=== PATIENT | female | born 1940 | race Caucasian/White ===

== ENCOUNTER 2017-03-09 11:15 | Inpatient (IN) | payer MEDICARE, BC ==
[~2017-03-09] VITALS: Ht 162.6 cm; Wt 72.1 kg
--- NOTE | ~2017-03-09 | ESTC ---
Cardiac Perfusion Imaging Demographics Patient Name ENA Hutson Gender Female Patient Number [id number] Race Visit Number [id number] Ethnicity Corporate ID Room Number G6309 Accession Number [id number] Height 64 inches Date of 1940 Weight 177 pounds Piper Navarro MD Interpreting Joshua Guerrero Date of study 03/16/2017 Physician MD Supervising /TEZP Piper Montoya NM Technologist Evy Navarro MD Ordering Physician Stress power tool repair technician Stress ECG Reading Piper Montoya Nurse Jam Dodd Physician A RN Propkelechi Henry RNyoke presser Procedure Type: Nuclear Stress Test:Cardiolite Stress Test Procedure Start time: 03/16/2017 08:20 Risk Factors The patient risk factors include:former tobacco use, hypertension, family history of premature CAD and dyslipidemia. Conclusions Impression ECG portion of lexiscan stress test is clinically negative for ischemia by diagnostic criteria. Myocardial perfusion imaging is normal. Overall left ventricular systolic function was normal without regional wall motion abnormalities. Calculated LVEF is 62% and TID ratio is 1.13. There are no previous studies for comparison. Stress Protocols Resting ECG SB PACs T inversions Pre-stress physical exam: Patient assessed by Dr Saldaña prior to testing. Stress Protocol:Pharmacologic Predicted HR: 143 bpm ECG Findings Indeterminate ECG due to baseline abnormalities. Arrhythmias No rhythm abnormality. Symptoms Cough Stress Interpretation Appropriate hemodynamic response to Lexiscan. No significant ST-T wave changes with Lexiscan. ECG portion is negative for ischemia by diagnostic criteria. Imaging Results Summed scores - Summed stress score: 9 - Summed rest score: 11 - Summed difference score: -2 Stress ejection Ejection fraction:62 % EDV :126 ml ESV :48 ml Stroke volume :78 ml LV mass :140 gr Imaging Protocols Rest Stress Isotope:Tc99m Sestamibi IV Isotope: Tc99m Sestamibi IV Isotope dose:14.2 mCi Isotope dose:43 mCi Date:03/16/2017 06:47 Date:03/09/2017 08:59 Technique: SPECT Technique: Gated Supine SPECT Supine IV remains in place after procedure. Procedure Medications - Regadenoson (Lexiscan) 0.4 mg IV over 10-15 sec. I.V. . Medical History Admission Data Admission date: 03/09/2017 Admission Time: 11:15 Hospital Status: Inpatient. Signatures dtt: THAO HERNANDEZ dtd: 03/16/17 0820 Physician Self Edit
--- NOTE | ~2017-03-09 | HP ---
PATIENT'S NAME: FREEMAN SUTHERLAND [facility] AGE: 77 Y [address] ROOM: [address] [address] [facility] ADMIT DATE: 03/09/2017 History & Physical DISCHARGE DATE: FAMILY PHYSICIAN: PHYSICIAN, UNKNOWN ATTENDING PHYSICIAN: Camacho GAMEZ DATE OF SERVICE: CHIEF COMPLAINT: Atrial fibrillation with RVR. HISTORY OF PRESENT ILLNESS: This is a 77-year-old female who presents here from [facility] with atrial fibrillation with RVR and acute encephalopathy. The patient was initially brought in yesterday to the emergency department at [place] after she was found by the patient accounts manager to be confused. She reports that she was upset because she was seeing kids who were playing around in her car and their parents were not doing anything about it. However, there were no kids playing around in her car, and the patient was also noted to be very confused. Rescue personnel were called, and the patient was found to be confused. The patient was brought into the emergency department. She was found to be in atrial fibrillation with RVR. Of note, the patient has a history of chronic atrial fibrillation. Initial workup including CT head, chest x-ray, labs, and UA were unremarkable. The patient was noted to be aggressive and uncooperative in the emergency department. She was also noted to be more confused. The patient received Ativan and Haldol during her stay. The patient was started on Cardizem drip; however, her atrial fibrillation with RVR was uncontrolled, and the patient was sent to our hospital for further care. The patient is currently somnolent as she got in multiple doses of Ativan and Haldol. Unable to acquire most of the history; however, discussed with her POAEdwina, and reports that the patient, prior to this, was in good health. PAST MEDICAL HISTORY: Chronic atrial fibrillation, dyslipidemia, essential tremor, hypertension, restless legs syndrome, GERD, and history of TIA. PAST SURGICAL HISTORY: Lumbar diskectomy, cholecystectomy, breast biopsy, total abdominal hysterectomy with bilateral salpingo-oophorectomy, appendectomy, tonsillectomy, and adenectomy. FAMILY HISTORY: Unable to obtain due to the patient's poor mentation. SOCIAL HISTORY: PATIENT'S NAME: FREEMAN SUTHERLAND [facility] AGE: 77 Y [address] ROOM: [address] [place], [place] [address] [facility] ADMIT DATE: 03/09/2017 History & Physical DISCHARGE DATE: FAMILY PHYSICIAN: PHYSICIAN, UNKNOWN ATTENDING PHYSICIAN: Camacho GAMEZ Apparently, lives by herself. She is . She lives with her boyfriend. MEDICATIONS: 1. Clonazepam 0.5 mg at bedtime. 2. Gabapentin 100 mg 4 times a day. 3. Pramipexole 1.5 mg 4 times daily. 4. Coumadin 5 mg. 5. Labetalol 200 mg daily and 100 mg in the evening. REVIEW OF SYSTEMS: Unable to obtain due to the patient's poor mentation. PHYSICAL EXAMINATION: VITAL SIGNS: Temperature 97.5, blood pressure 101/52, heart rate of 87, respiratory rate of 16, and saturating 93% on room air. GENERAL APPEARANCE: The patient is somnolent, in no acute distress. HEAD: Normocephalic, atraumatic. EYES: Sclerae nonicteric. MOUTH: Dry oral mucosa. CHEST: Clear to auscultation bilaterally. HEART: Irregularly irregular. No murmurs, rubs, or gallops heard. ABDOMEN: Soft and nontender. Bowel sounds present. EXTREMITIES: Warm to touch. Trace edema. CENTRAL NERVOUS SYSTEM: The patient is somnolent, unable to awake by voice, awakes for painful stimuli. Follows initially simple command. LABORATORY DATA: Labs done at the outside hospital show hemoglobin of 13.4, white blood cells of 7.7, and platelet of 263. Sodium of 145, potassium 3.8, creatinine 0.94, and CO2 of 102. CT head done shows no acute abnormality at the outside hospital. Cardiac enzymes x3 are negative. ASSESSMENT AND PLAN: 1. Acute encephalopathy. Etiology most likely secondary to polypharmacy. The patient presenting with visual hallucination and confusion. Unable to fully assess the patient as the patient has received multiple doses of Ativan and Haldol and currently somewhat sedated. The patient's initial presentation might be secondary to polypharmacy such as gabapentin use and pramipexole use, which actually is using a heftier dose of 1.5 mg 4 times daily, which can explain her visual hallucination, and also use of clonazepam. We will discontinue this medication. We will acquire TSH, B12, and folate. We will hold any sedation medication and see how the patient improves. In order to assess infection as possible cause, we will acquire chest x-ray and urinalysis. We will also acquire ABG as the patient has a history of obstructive sleep apnea. PATIENT'S NAME: FREEMAN SUTHERLAND [facility] AGE: 77 Y [address] ROOM: [place] [address] [facility] ADMIT DATE: 03/09/2017 History & Physical DISCHARGE DATE: FAMILY PHYSICIAN: PHYSICIAN, UNKNOWN ATTENDING PHYSICIAN: Camacho GAMEZ 2. Atrial fibrillation with rapid ventricular response, resolved currently. The patient was on Cardizem drip. Now, the patient's rates in the 80s; however, blood pressure is somewhat labile in the low 100s. We will hold Cardizem drip. We will start the patient on IV fluids as I suspect she has poor oral intake. We will acquire echocardiogram. Initial cardiac enzymes at the outside hospital, cardiac enzymes x3 are negative. The patient was started on Lovenox. We will continue Lovenox 1 mg/kg and restart her Coumadin when she is able to take p.o. medication as the patient is somnolent currently. The patient has history of chronic atrial fibrillation, and her INR has been therapeutic at the outside hospital at 1.3. 3. Hypertension, stable. We will hold labetalol as the patient's blood pressure is labile currently. 4. Restless legs syndrome. To hold pramipexole due to acute encephalopathy. 5. Gastroesophageal reflux disease. We will start Protonix IV. 6. Obstructive sleep apnea. When the patient is able to awake, would use CPAP at night. 7. Greater than 60 minutes was spent on the patient's care, 50% of the time was in direct care including discussion with Dr. Savage from [facility] and discussion with Edwina who is her POA in terms of getting information. We will admit the patient for acute encephalopathy and atrial fibrillation with rapid ventricular response. We will acquire echo. Code status discussed with the POAEdwina. Code status is full code on admission. MD DAVID MCCAULEY/anthony /[id number] D: [id number] T: [id number] HISTORY & PHYSICAL
--- NOTE | ~2017-03-09 | CON ---
PATIENT'S NAME: FREEMAN SUTHERLAND [facility] AGE: 77 Y [address] ROOM: [place] [address] LOCATION: [facility] ADMIT DATE: 03/09/2017 Consultation DISCHARGE DATE: FAMILY PHYSICIAN: PHYSICIAN, UNKNOWN ATTENDING PHYSICIAN: Camacho GAMEZ DATE OF CONSULTATION: 03/10/2017 REASON FOR CARDIOLOGY CONSULT: Atrial fibrillation with RVR. HISTORY OF PRESENT ILLNESS: This is a 77-year-old female, who initially presented yesterday to the [place] [facility] per ambulance after her apartment tour manager found her to be confused and hallucinating. She stated there were children playing in her car and this was not able to be confirmed as true. The patient at this time is still rather confused to full details and states "I want to go home." The rest of her history is obtained from chart review due to her confused status. She is currently in an atrial fibrillation rhythm with rapid ventricular response. She has a previous history of chronic atrial fibrillation with long-term anticoagulation with Coumadin. Other history includes dyslipidemia, hypertension, GERD, and history of a TIA. She denies any chest pain or shortness of breath. She also denies headache, nausea, or vomiting. She is resting in chair and is tearful at times with questioning and once again states "I want to go home." PAST MEDICAL HISTORY: As listed in the HPI. PAST SURGICAL HISTORY: 1. Cholecystectomy. 2. Hysterectomy. 3. Appendectomy. 4. Tonsillectomy. 5. Adenoidectomy. 6. Lumbar diskectomy. FAMILY HISTORY: Unable to be obtained due to patient's neurologic status. SOCIAL HISTORY: Unable to be obtained due to patient's neurologic status. CURRENT MEDICATIONS: 1. Cardizem IV drip per heart rate titration protocol. Previously ordered PATIENT'S NAME: FREEMAN SUTHERLAND [facility] AGE: 77 Y [address] ROOM: [address] [address] LOCATION: [facility] ADMIT DATE: 03/09/2017 Consultation DISCHARGE DATE: FAMILY PHYSICIAN: , UNKNOWN ATTENDING PHYSICIAN: Camacho GAMEZ by the Hospitalist Service for the RVR. 2. Protonix 40 mg IV daily. 3. Potassium chloride 40 mEq p.o. twice daily. 4. Lovenox 80 mg subcu twice daily. 5. Coumadin per pharmacy dosing for an INR goal of 2 to 3 for her atrial fibrillation. MEDICATION ALLERGIES: Include: 1. Digoxin. 2. Niacin. 3. Erythromycin base. 4. Trandolapril. 5. Atorvastatin. REVIEW OF SYSTEMS: Pertinent positive review of systems listed in HPI. Full review of systems attempted to be obtained and appear to be negative but once again patient's neurologic status does make for a difficult history review. DIAGNOSTICS: CMS evaluation shows sodium of 146, potassium 3.3, BUN of 23, creatinine 0.7, and a glucose of 92. She has a magnesium of 2.1. CBC evaluation shows a white blood cell count of 5.7, hemoglobin of 12.2, hematocrit 36.9, and a platelet of 210. PHYSICAL EXAMINATION: VITAL SIGNS: Temperature 97.8, pulse 112, respirations 18, blood pressure 131/86, O2 saturation 95% on room air. The patient weighs 80.5 kg. SKIN: [place], warm, and dry. EYES: Sclerae are clear. No xanthelasma. ENT: Oral mucosa is pink and moist. No jugular venous distention or carotid bruits. CHEST: Respirations are even and unlabored. LUNGS: Clear to auscultation. HEART: Irregular rate and rhythm. Normal S1 and S2. ABDOMEN: Soft and nontender. MUSCULOSKELETAL: Equal muscle strength in upper and lower extremities bilaterally against resistance. EXTREMITIES: Peripheral pulses palpable. No clubbing or cyanosis noted. Does have trace lower extremity edema present. PSYCH: Disoriented to place. She is alert to person and time. Her mood and affect are appropriate, but she is tearful at times and once again confused to full medical details, specifically related to her current admission. PATIENT'S NAME: FREEMAN SUTHERLAND [facility] AGE: 77 Y [address] ROOM: [place] [address] [facility] AD[facility] DATE: 03/09/2017 Consultation DISCHARGE DATE: FAMILY PHYSICIAN: PHYSICIAN, UNKNOWN ATTENDING PHYSICIAN: Camacho GAMEZ IMPRESSION AND PLAN: Per Dr. Saldaña. 1. Atrial fibrillation with rapid ventricular response. This patient has a chronic history of atrial fibrillation and was previously anticoagulated with Coumadin. We will restart that per the pharmacy dosing for an INR goal of 2 to 3. We will also start her on sotalol 80 mg p.o. every 12 hours. We will check EKGs every a.m. to monitor QTc safety. We will check a set of cardiac enzymes as well as a Pro BNP, and we will evaluate an echocardiogram to fully evaluate ejection fraction as well as look for wall motion valvular abnormalities. 2. Acute encephalopathy with questionable hallucinations. We will defer to the Hospitalist Service. 3. Hypertension, currently well controlled. We will continue to monitor, evaluate, and treat as appropriate. Thank you for this consult. Thank for allowing [facility] to interact in the care of this patient. JAQUI RICE APRN FOR MD CHUCHO GRANADOS/anthony /[id number] d: 03/10/17 1341 t: 04/04/17 0820, CONSULTATION REPORT
--- NOTE | ~2017-03-09 | ECHO ---
Transthoracic Echocardiography Report (TTE) Demographics Patient Name FREEMAN SUTHERLAND Date of Study 03/09/2017 C Patient Number [id number] Visit Number [id number] Date of 1940 Room Number G6309 Gender Female Number Age 77 year(s) Referring Lola Sauer Engine Cowling Installer Henrique Orlando RDCS, Physician RVT Physician Interpreting Piper Montoya Broommaker Physician A MD Supervising Ordering Lola Sauer MD/MLP Physician Nurse Stress Paving Supervisor Conclusions Contractility Score Summary Normal Left Ventricular contractility was noted. Summary Technically difficult exam due to patient movement. The estimated left ventricular ejection fraction is 60%. Diastolic function indeterminate due to patient's arrhythmia. The left ventricle is normal in size . Mild to moderate concentric left ventricular hypertrophy. Mildly dilated right ventricle. Normal right ventricular systolic performance. Mild mitral regurgitation by color Doppler. Mild calcification of the mitral valve. Moderate tricuspid regurgitation by color Doppler. There is mild pulmonary hypertension. The pulmonary pressure (RVSP) is 36.3 mmHg. Procedure Type of Study TTE procedure:2D Echocardiogram. Procedure Date Date: 03/09/2017 Start: 02:18 PM Study Location: Inpatient Portable Technical Quality: Adequate visualization Indications:Atrial fibrillation. Appropriate Use Criteria: 9 Patient Status: Routine Rhythm: Atrial fibrillation HR: 115 bpm BP: 104/63 mmHg M-Mode/2D Measurements LV Diastolic Dimension: 4.7 cm LV Systolic Dimension: 3 cm LV Septum Diastolic: 0.87 cm LV PW Diastolic: 0.95 cm Cardiac Output: 7.47 l/min LA Dimension: 3.6 cm LVOT: 2 cm LVOT VTI: 20.7 cm RV Base: 3.58 cm LV Stroke volume: 65 ml RV Length: 5.82 cm TAPSE: 2.15 cm TDI-S': 12.9 cm/s Doppler Measurements AV Peak Velocity: 1.03 m/s MV Peak E-Wave: 1.16 m/s AV Peak Gradient: 4.24 mmHg AV Mean Gradient: 3 mmHg LVOT Peak Velocity: 1.02 m/s PV Peak Velocity: 0.91 m/s TR Velocity:2.66 m/s PV Peak Gradient: 3.31 mmHg TR Gradient:28.3 mmHg Estimated PASP: 36.3 mmHg Estimated RAP:8 mmHg Estimated RVSP: 36 mmHg E' Septal Velocity: 0.1 m/s E' Lateral Velocity: 0.08 m/s Findings Left Ventricle Diastolic function indeterminate due to patient's arrhythmia. The left ventricle is normal in size . Mild to moderate concentric left ventricular hypertrophy. Right Ventricle Mildly dilated right ventricle. Normal right ventricular systolic performance. Left Atrium The left atrium is mildly to moderately dilated. The interatrial septum bulges to the right, indicating elevated left atrial pressure. Right Atrium The right atrium is mildly dilated. Redundant interatrial septum. Mitral Valve Mild mitral regurgitation by color Doppler. Mild calcification of the mitral valve. Aortic Valve Normal aortic valve structure and function. Tricuspid Valve Moderate tricuspid regurgitation by color Doppler. There is mild pulmonary hypertension. The pulmonary pressure (RVSP) is 36.3 mmHg. Pulmonic Valve Normal pulmonic valve structure and function. Mild pulmonic valve regurgitation. Pericardial Effusion No evidence of pericardial effusion. Miscellaneous Visualized portions of the aortic root and ascending aorta appear normal in size. Pleural Effusion No evidence of pleural effusion. Contractility Score LV regional wall motion:(0-Non visualized 1-Normal 2-Hypokinesis 3-Akinesis 4-Dyskinesis 5-Aneurysm) Signature dtt: Oz Saldaña dtd: 03/09/17 1418 Physician Self Edit
--- NOTE | ~2017-03-09 | DS ---
PATIENT'S NAME: FREEMAN SUTHERLAND [facility] AGE: 77 Y [address] ROOM: [address] [address] LOCATION: GPCU ADMIT DATE: 03/09/2017 Discharge Summary DISCHARGE DATE: 03/17/2017 FAMILY PHYSICIAN: Physician, Unknown ATTENDING PHYSICIAN: Camacho Davila PRIMARY DIAGNOSES: 1. Atrial fibrillation with rapid ventricular response. 2. Acute encephalopathy. 3. Hypernatremia. 4. Aerococcus urinary tract infection. 5. Cognitive impairment. 6. Chronic conditions include gastroesophageal reflux disease, chronic atrial fibrillation, and restless leg syndrome. 7. Supratherapeutic INR and subtherapeutic INR. PRINCIPAL PROCEDURE DONE FOR THE PATIENT: Includes DC cardioversion by Dr. Betancourt. LABORATORY DATA: Labs during the hospital course, WBC was stable throughout the hospital stay, WBC on discharge was 6.6, H and H as well was stable throughout the hospital stay, upon discharge, it was 12.7/38.9, and platelet was stable throughout the hospital stay as well at 239. Creatinine was stable throughout the hospital stay, upon discharge, it was 0.7, during this stay, her sodium was 146, prior to discharge was 137; potassium was stable throughout the hospital stay, bicarb as well on admission was 19, prior to discharge was 26. Liver function test was within normal limits throughout the hospital stay. INR on admission was 1.76, highest level obtained was 3.46, and prior to discharge was 1.27. UA on admission, leukocytes 25, nitrite negative, wbc was 0 to 2, and CK-MB was 16.3. Procalcitonin was less than 0.05. MICROBIOLOGY: Urine culture was Aerococcus urinae greater than 100,000. Blood culture was no growth after 5 days. Repeat urine culture was Cherry 1000 to 10,000 colony-forming units. RADIOLOGY: Chest x-ray reported as normal chest. Nuclear stress test was negative. Echocardiogram ejection fraction 60%, diastolic function indeterminate due to the patient's arrhythmia, left ventricle is normal in size, [id number] concentric left ventricular hypertrophy, mildly dilated right ventricle. Nuclear stress test overall left ventricle systolic function was normal without regional wall motion abnormality. EKG portion of Lexiscan stress test was clinically negative for ischemia by diagnostic criteria. HOSPITAL COURSE: For history of present illness, please take a look at the H and P, which was done by Dr. Davila. The patient was admitted to [facility] PATIENT'S NAME: FREEMAN S[facility]HERLAND [facility] AGE: 77 Y [address] ROOM: [id number] [place], [place] [address] LOCATION: GPCU ADMIT DATE: 03/09/2017 Discharge Summary DISCHARGE DATE: 03/17/2017 FAMILY PHYSICIAN: Physician, Unknown ATTENDING PHYSICIAN: Krupa [facility] and was managed as a case of acute encephalopathy with the possible etiology being polypharmacy versus dehydration. The patient was hydrated and her Mirapex was discontinued. She did also get a Cardiology consult for her atrial fibrillation with rapid ventricular response. The patient was put on Cardizem drip and also was started on sotalol; however, by the next day of the hospital stay, the patient still had intermittent hallucination and agitation, which initially was not controlled with Seroquel as well as Haldol. During this moment, she was refusing to eat, she was spitting out her medication and so, she was kept n.p.o. and also put in a restraint. She was subsequently then given some Zyprexa p.r.n. 2.5 mg, which helped to control the hallucination and the agitation. Ultimately, her hallucination and agitation resolved by the 3rd day of the hospital stay. Prior to this time, she did also develop some hypernatremia, which resolved by the next day. Given the persistence of hallucination by the 2nd day of the hospital stay, we did get a UA and urine culture, and urine culture came back positive for Aerococcus and she was started on Unasyn. She was on Unasyn for approximately 5 to 6 days after which it was switched to p.o. Augmentin to complete a total days of antibiotics of 7 days. Her repeat urine culture following the initial positive culture was negative except for Cherry. From the 1st day of the hospital stay, the patient would always cry and mention that she did not want to go to any sort of facility; however, her POA, the niece, and also her son felt that this was the ideal place for the patient at this current time; so, Floor Molder came on-board to help with the placement. By the 4th day of the hospital stay, the patient still remained in AFib, which was not rate- controlled, and subsequently went in for a DC cardioversion with a positive outcome. Following this, she remained in sinus rhythm and her Cardizem was discontinued and was continued on sotalol. Dose was modified accordingly by the public housing interviewer. By the 3rd day of her hospital stay as her hallucination had resolved and mentation had improved, she was slowly restarted on some of her home medication; however, her Mirapex dose was decreased significantly from 1.5 mg 4 times daily to 0.125 mg q.h.s. Following the resolution of the agitation and the hallucination, the patient's orientation was fluctuated significantly, one moment, she is oriented to time, place, name, and other periods, she was oriented only to self and place. She continued to remain in sinus rhythm and continued to remain medically stable and calm though she still maintained that she did not want to go to any facility that she wanted to return home. Even though, it was explained to her that she was no longer safe to be at home as given her current mentation, but she still maintained she wanted to go home. Ultimately, on the day of discharge, the patient was discharged to a shelter at [facility]. She remained in sinus rhythm, calm, and she was discharged with vital signs stable. Please note that on the day of discharge, the patient's INR was subtherapeutic; so, she was discharged on Lovenox to bridge with Coumadin and Lovenox is to be stopped once INR is greater than or equal to 1.9. PATIENT'S NAME: FREEMAN S[facility]HER[facility] AGE: 77 Y [address] ROOM: [address] [place], [place] [address] [facility] ADMIT DATE: 03/09/2017 Discharge Summary DISCHARGE DATE: 03/17/2017 FAMILY PHYSICIAN: Physician, Unknown ATTENDING PHYSICIAN: Camacho Davila MEDICATIONS ON DISCHARGE: Includes: 1. Klonopin 0.5 mg p.o. q.h.s. 2. Augmentin p.o. twice daily one more day course to complete a total of 7 days. 3. Mirapex 0.125 mg p.o. q.h.s. 4. Florastor 250 mg p.o. twice daily for 5 more days. 5. Sotalol 80 mg twice daily, new medication. 6. Coumadin 5 mg p.o. daily. 7. Aldactone 50 mg p.o. daily, new medication. 8. Ultram 50 mg p.o. 3 times daily p.r.n. 9. Dexilant 60 mg p.o. daily. 10. Vitamin B12 500 mcg p.o. daily. 11. Vitamin D 1000 units p.o. daily. 12. Tylenol 1 g p.o. q.6 h. p.r.n. 13. Tramadol 50 mg t.i.d. p.o. p.r.n. 14. Lovenox 60 mg p.o. daily subcu for 5 days, stop if INR is greater than or equal to 1.9. DISCHARGE INSTRUCTIONS: The patient is to follow up with Dr. Ruiz at [facility] [place] in the next 1 week and follow up with the public housing interviewer Dr. Fidel Woodall in the next 2 weeks with EKG. Daily INR until INR is greater than or equal to 1.9 then thereafter INR per unit protocol. INR is to be called to the MD in charge and stop Lovenox once INR is greater than or equal to 1.9. Discharge time spent on this patient is approximately 35 minutes, which included coordinating discharge plan with Care Management. TAVO RUIZ MD ODO/anthony /[id number] d: 03/18/17 0237 t: 03/19/17 1419, DISCHARGE SUMMARY
--- NOTE | ~2017-03-09 | OR ---
PATIENT'S NAME: FREEMAN SUTHERLAND [facility] AGE: 77 Y [address] ROOM: [place] [address] LOCATION: GPCU ADMIT DATE: 03/09/2017 OR/Procedure Report DISCHARGE DATE: FAMILY PHYSICIAN: PHYSICIAN, UNKNOWN ATTENDING PHYSICIAN: Camacho GAMEZ SURGEON: Oz Saldaña MD [place]: DATE OF PROCEDURE: 03/13/2017 PROCEDURE: Synchronized cardioversion. INDICATION: The patient is a 77-year-old lady with persistent atrial fibrillation. Sotalol was initiated and titrated to 120 mg twice a day. The patient failed to convert, so she was brought in the fasting state in the procedural unit. She was connected to monitoring equipment. Permission was granted by her , who is power of county attorney. DESCRIPTION OF PROCEDURE: Anesthesia provided propofol and when the patient was deeply asleep, delivered a single synchronized 200 joule biphasic shock with patches in the anterior/posterior configuration. The patient promptly converted from atrial fibrillation with rapid ventricular response to sinus rhythm with frequent premature atrial contractions. CONCLUSION: Successful cardioversion from atrial fibrillation to sinus rhythm. OZ SALDAÑA MD PE/modl /[id number] d: 03/13/[id number] t: 03/16/17 0944, OPERATIVE SUMMARY
[2017-03-09] MEDS ORDERED: LABETALOL HCL200 MG PO ×2 (11:47)
[2017-03-09] MEDS ORDERED: NEURONTIN400 MG PO (11:48)
[2017-03-09] MEDS ORDERED: NORPACE PO (11:48)
[2017-03-09] MEDS ORDERED: DEXILANT60 MG PO (11:48)
[2017-03-09] MEDS ORDERED: KLONOPIN0.5 MG PO (11:48)
[2017-03-09] MEDS ORDERED: MIRAPEX1.5 MG PO (11:49)
[2017-03-09] MEDS ORDERED: VITAMIN D1000 UNI1 PO (11:50)
[2017-03-09] MEDS ORDERED: COUMADIN ** IA5 MG PO (11:50)
[2017-03-09] MEDS ORDERED: VITAMIN B-12500 MCG PO (11:50)
[2017-03-09] MEDS ORDERED: TYLENOL EXTRA500 MG PO (11:51)
--- NOTE | 2017-03-09 12:26 | NUR ---
Pt is 77 y/o female admit for afib w rvr and altered mental status for hospitalist. Came via ambulance from [facility]. Pt is very drowsy,lethargic and is not aroused by voice or touch. Pt received Haldol before arriving. Allergy to Mavik,lanoxin,atorvastatin,niacin,erythromycin. Pt lives in an apartment by herself and has a boyfriend who lives nearby in another apartment. Pt's manager mall was concerned about her and called the police to do a well being check on her. Hx chronic afib,hyperlipids,chronic leg pain,essential tremor,sleep apnea,RLS,htn,stents,CAD,arthritis,spinal stenosis,gerd,diverticulosis,incontinent,?dementia. Pt was confused when police arrived and were questioning her. She was seeing kids messing with her car and she wasn't clear on the timing of events or how long she had been at her apartment.
[2017-03-09 13:54] LABS: BICARBONATE 25.6 mmol/L (18.0-23.0); PCO2 36 mmHg (35-45); PO2 101 mmHg (80-90)
--- NOTE | 2017-03-09 16:42 | NUR ---
Significant Event:Obtunded, did arouse when first arrived, attempted to open eyes just a little. Pupils 1mm and brisk. Followed commands to wiggle toes. Mumbled that her name was Jolie. Other answers could not be understood. Arouses to sternal rub for MD. Afib. Irregular snoring respirations with apnea of 15 seconds, O2 sats > 94%. Diaphoretic, warm, edema 2+ pitting all over. NPO, bowel sounds auscultated in all 4 quadrants. Incontinent of urine. IVF infusing. ECHO and EKG completed. Labs and VBG drawn. Follow up:Turn q2h, check LOC.
--- NOTE | 2017-03-09 18:30 | NUR ---
D: I have reviewed and agree with charting completed by PAULA Collier.
[2017-03-09 20:55] LABS: BILIRUBIN URINE NEGATIVE (NEGATIVE); BLOOD URINE NEGATIVE /UL (NEGATIVE); COLOR URINE YELLOW (YELLOW); GLUCOSE URINE NEGATIVE (NEGATIVE); KETONE URINE 5 mg/dL (NEGATIVE); LEUKOCYTES URINE 25 /UL (NEGATIVE); NITRITE URINE NEGATIVE (NEGATIVE); PROTEIN URINE 15 mg/dL (NEGATIVE); TURBIDITY URINE 3+ (CLEAR); UROBILINOGEN URINE 1 mg/dL (NORMAL)
[2017-03-09 21:02] LABS: BACTERIA URINE MANY (NEGATIVE); MUCUS URINE 2+ (NEGATIVE); RBC URINE NEGATIVE #/HPF (NEGATIVE); WBC URINE 0-2 #/HPF (NEGATIVE)
--- NOTE | 2017-03-10 05:03 | NUR ---
Significant event: Patient much more awake throughout the night. Able to tell me her bithdate but not what month or year it was. slow to respond but able to follow commands if given time. Needs frequent reminders that she is in the hospital and needs to stay in the bed. Heart rates have been increasing throughout the night as she has been waking up more and more.
[2017-03-10 06:30] LABS: BASOPHIL % 0.5 %; EOSINOPHIL # 0.1 K/uL (0.0-0.5); EOSINOPHIL % 1.2 %; HEMATOCRIT 36.9 % (33.0-46.0); HEMOGLOBIN 12.2 g/dL (10.0-15.0); IMMATURE GRANULOCYTE % 0.2 %; LYMPHOCYTE # 1.1 K/uL (0.8-4.0); LYMPHOCYTE % 19.4 %; MCHC 33.1 gm/dL (32.0-36.5); MCV 90.9 fl (83.0-98.0); MONOCYTE # 0.5 K/uL (0.0-1.0); MONOCYTE % 8.8 %; MPV 10.7 fl (9.4-12.4); NEUTROPHIL % 69.9 %; NRBC % 0 /100WBC (0-0.00); PLATELET COUNT 210 K/uL (150-450); RBC 4.06 M/uL (3.50-5.50); RDW-CV 15.9 % (11.9-14.6); WBC 5.7 K/uL (4.0-11.0)
[2017-03-10 06:40] LABS: INR - (THERAPEUTIC) 1.76 (0.92-1.07); PROTIME 18.6 SECONDS (9.8-11.4)
[2017-03-10 06:49] LABS: ALBUMIN 3.3 gm/dL (3.5-5.0); ALK PHOS 72 IU/L (33-138); ALT 28 IU/L (12-78); AST 58 IU/L (10-40); BLOOD UREA NITROGEN 23 mg/dL (6-24); CALCIUM 8.5 mg/dL (8.5-10.5); CO2 19 mMol/L (22-32); CREATININE 0.7 mg/dL (0.5-1.1); ESTIMATED GFR (MDRD EQUATION) > 60; MAGNESIUM 2.1 mg/dL (1.8-2.6); POTASSIUM 3.3 mMol/L (3.7-5.1); TOTAL BILIRUBIN 1.3 mg/dL (0.0-1.5)
[2017-03-10 06:51] LABS: ANION GAP 14.3 (10.0-19.0); CHLORIDE 116 mMol/L (96-110); SODIUM 146 mMol/L (135-145)
[2017-03-10 10:07] LABS: CPK 1438 IU/L (21-215)
--- NOTE | 2017-03-10 15:02 | NUR ---
Introduced self and care management services to patient. Appropriate in conversation, may be a little confused still. Reports she lives alone, plans on going home on discharge. When asked says she will have help when she goes home, asked who help her and she says neighbors. Nurse reports power of staff attorney on her way. Told pt if continues to improve and feels safe discharging home then will go home, if doesn't feel safe discharging home then can see if can go to swingbed for a little while to work with therapies to get stronger. [employer] Sales Representative will follow.
--- NOTE | 2017-03-10 17:25 | NUR ---
Significant Event: A/O x3, Visually Hallucinating about sister Zahida, Impulsive, forgetful at times. Started on Cardizem drip and hourly vital signs at 0917 after starting PO Sotolol and Cardizem IV bolus for HRs in 160s, currently running at 10mg/hr for HRs 100s-130s. O2 remains >90% on RA. Tolerating regular diet and PO fluids. Sucessfully using comode at times to void but is incontinent of bowel and bladder, loose BM today. Complete bag bath. Started therapy with PT/OT, 2assist with gait belt and walker, leans forward, up in recliner for meals, visited with JOVAN Russo and Edwina today they continued to be updated. AD corrected for Edwina's last name, has changed with recent marriage. team manager here to discuss possible swing bed, JOVAN in agreement with this plan. Patient spoke with finance on phone and he is updated as well. Patient is tearful at times, family says this is new. Follow up: Titrate Cardizem, improve strength and independence.
--- NOTE | 2017-03-10 19:08 | NUR ---
D: I have reveiwed and agree with charting completed by PAULA Collier.
--- NOTE | 2017-03-11 04:43 | NUR ---
Significant Event: Alert to person/time in first assesssment. For rest of shift patient has been disoriented to time and place. Visual hallucinations. Became agitated, combative, yelling at nurses. Attempted to get out of bed multiple times refusing assistance. Gave seroquel and haldol and continued to be agitated/combative. Recieved order for wrist restraints @ 0025. 1:1 sitting with patient for rest of shift. SBP 95-143. HR 90-110s. Cardizem gtt @ 10/hr. 5% dextrose running @ 75/hr. No BM. Incontinent. Follow up: Monitor neuro status.
[2017-03-11 05:16] LABS: HEMATOCRIT 36.7 % (33.0-46.0); HEMOGLOBIN 12.4 g/dL (10.0-15.0); MCH 30.1 pg (27.0-34.0); MCHC 33.8 gm/dL (32.0-36.5); MCV 89.1 fl (83.0-98.0); MPV 10.6 fl (9.4-12.4); PLATELET COUNT 233 K/uL (150-450); RBC 4.12 M/uL (3.50-5.50); RDW-CV 15.6 % (11.9-14.6); WBC 9.1 K/uL (4.0-11.0)
[2017-03-11 05:23] LABS: INR - (THERAPEUTIC) 2.01 (0.92-1.07); PROTIME 21.3 SECONDS (9.8-11.4)
[2017-03-11 05:33] LABS: ALBUMIN 3.4 gm/dL (3.5-5.0); ALK PHOS 72 IU/L (33-138); ALT 40 IU/L (12-78); ANION GAP 11.1 (10.0-19.0); AST 65 IU/L (10-40); BLOOD UREA NITROGEN 17 mg/dL (6-24); CALCIUM 8.6 mg/dL (8.5-10.5); CHLORIDE 111 mMol/L (96-110); CO2 22 mMol/L (22-32); CREATININE 0.7 mg/dL (0.5-1.1); ESTIMATED GFR (MDRD EQUATION) > 60; POTASSIUM 4.1 mMol/L (3.7-5.1); SODIUM 140 mMol/L (135-145); TOTAL BILIRUBIN 1.5 mg/dL (0.0-1.5); TOTAL PROTEIN 6.2 g/dL (6.0-8.4)
[2017-03-11 05:45] LABS: ABSOLUTE NEUTROPHIL CT (ANC) 6.4 K/uL (1.8-7.8); LYMPHOCYTE # 1.5 K/uL (0.8-4.0); LYMPHOCYTE % 17 %; MONOCYTE # 0.5 K/uL (0.0-1.0); SEGMENTED NEUTROPHIL # 6.4 K/uL (1.8-7.8); SEGMENTED NEUTROPHIL % 70 %
--- NOTE | 2017-03-11 06:20 | NUR ---
RN educated patient on importance of hourly blood pressure checks. Pt refused to allow nurse to check blood pressures intermittently during the night.
--- NOTE | 2017-03-11 17:23 | NUR ---
Significant Event: Alert, confused time and place and situation, visual hallucinations, combative, pulling at tubing, bilateral wrist restraints, spitting pills. HRs 100s-130s, cardizem drip rate inc at 1600 to 15mg/hr, HRs now 80s-90s, refused to take sotalol, IM ziprexa given, took sotalol at 1422, SBPs 160s-180s but improved to 120s after meds taken. Remains on RA. Fair appetite when fed meals. Incontinent of large amounts of urine, BM x2. Started on unasyn for positive UA. POA Edwina updated. More cooperative this afternoon but still requiring restraints. Follow up: Wean cardizem, feed patient, turn q2h, reorient.
--- NOTE | 2017-03-11 18:03 | NUR ---
D: I HAVE REVIEWED AND AGREE WITH CHARTING COMPLETED BY PAULA DOCKERY.
[2017-03-12 03:10] LABS: BASOPHIL % 0.4 %; EOSINOPHIL # 0.2 K/uL (0.0-0.5); EOSINOPHIL % 1.9 %; HEMATOCRIT 37.5 % (33.0-46.0); HEMOGLOBIN 12.8 g/dL (10.0-15.0); IMMATURE GRANULOCYTE % 0.3 %; LYMPHOCYTE # 1.6 K/uL (0.8-4.0); LYMPHOCYTE % 19.9 %; MCH 30.2 pg (27.0-34.0); MCHC 34.1 gm/dL (32.0-36.5); MCV 88.4 fl (83.0-98.0); MONOCYTE # 0.6 K/uL (0.0-1.0); MONOCYTE % 7.8 %; NEUTROPHIL # (ANC) 5.5 K/uL (1.8-7.8); NEUTROPHIL % 69.7 %; NRBC % 0 /100WBC (0-0.00); PLATELET COUNT 231 K/uL (150-450); RBC 4.24 M/uL (3.50-5.50); RDW-CV 15.5 % (11.9-14.6); WBC 7.8 K/uL (4.0-11.0)
[2017-03-12 03:26] LABS: INR - (THERAPEUTIC) 3.15 (0.92-1.07); PROTIME 33.5 SECONDS (9.8-11.4)
[2017-03-12 03:27] LABS: ALBUMIN 3.5 gm/dL (3.5-5.0); ALK PHOS 80 IU/L (33-138); ALT 43 IU/L (12-78); ANION GAP 12.6 (10.0-19.0); AST 55 IU/L (10-40); BLOOD UREA NITROGEN 11 mg/dL (6-24); CALCIUM 8.7 mg/dL (8.5-10.5); CHLORIDE 108 mMol/L (96-110); CO2 24 mMol/L (22-32); CREATININE 0.7 mg/dL (0.5-1.1); ESTIMATED GFR (MDRD EQUATION) > 60; MAGNESIUM 1.9 mg/dL (1.8-2.6); POTASSIUM 3.6 mMol/L (3.7-5.1); SODIUM 141 mMol/L (135-145); TOTAL BILIRUBIN 1.2 mg/dL (0.0-1.5); TOTAL PROTEIN 6.3 g/dL (6.0-8.4)
--- NOTE | 2017-03-12 05:13 | NUR ---
ORIENTED TO PERSON. DISORIENTED TO TIME/PLACE. VISUAL HALLUCINATIONS. AFIB CARDIZEM AT 10MG CURRENTLY. SBP 120-140s. AFEBRILE. INCON BOWEL AND BADDER. WRIST RESTRAINTS. TURN 2QHR. TAKES PILLS WELL CRUSHED IN APPLESAUCE. D5W AT 50ML/HR. MOD BMx1.
--- NOTE | 2017-03-12 16:21 | NUR ---
Significant Event: AFIB CONTINUES WITH HR'S 80S-120S; CARDIZEM GTT CONTINUES PER PROTOCOL AT 10 MG/HR. PO MEDS ADJUSTED PER DR. Betancourt. SBPS 110S-140S. BILATERAL WRIST RESTRAINTS REMAIN ON D/T PT PULLING AT TUBES, WIRES, AND NOT FOLLOWING SAFETY INSTRUCTIONS. GAVE ULTRAM X1 AT 1405 FOR RESTLESSNESS AND LEG PAIN WITH REPOSITIONING. HAD A BEDSIDE ST EVAL AND WAS COOPERATIVE AND ALERT AT THAT TIME THIS AM, BUT REMAINS DISORIENTED TO TIME AND PLACE AND GETS AGITATED EASILY AND YELLS WITH REPOSITIONING AND DANGLING AT BEDSIDE WITH PT/OT THIS AFTERNOON. ORDER FOR MECHANICAL SOFT DIET WITH REGULAR LIQUIDS AND TO CRUSH MEDS AND GIVE WITH APPLESAUCE. DR. Betancourt SPOKE WITH THE PATIENT'S SON ABOUT POSSIBLE CARDIOVERSION TOMORROW AM. REPOSITIONED Q2H AND ALOE TO BUTTOCKS. INC. URINE AND SMALL BM X2. Follow up: CONTINUE PLAN OF CARE; NPO P MN FOR POSSIBLE CARDIOVERSION IN THE AM.
[2017-03-13 03:44] LABS: BASOPHIL % 0.4 %; EOSINOPHIL # 0.2 K/uL (0.0-0.5); EOSINOPHIL % 2.7 %; HEMOGLOBIN 12.9 g/dL (10.0-15.0); IMMATURE GRANULOCYTE % 0.3 %; LYMPHOCYTE # 1.4 K/uL (0.8-4.0); LYMPHOCYTE % 18.4 %; MCH 29.6 pg (27.0-34.0); MCHC 33.1 gm/dL (32.0-36.5); MCV 89.4 fl (83.0-98.0); MONOCYTE # 0.6 K/uL (0.0-1.0); MONOCYTE % 8.7 %; MPV 10.6 fl (9.4-12.4); NEUTROPHIL # (ANC) 5.1 K/uL (1.8-7.8); NEUTROPHIL % 69.5 %; NRBC % 0 /100WBC (0-0.00); PLATELET COUNT 202 K/uL (150-450); RBC 4.36 M/uL (3.50-5.50); RDW-CV 15.5 % (11.9-14.6); WBC 7.4 K/uL (4.0-11.0)
[2017-03-13 03:52] LABS: INR - (THERAPEUTIC) 3.46 (0.92-1.07); PROTIME 36.8 SECONDS (9.8-11.4)
[2017-03-13 04:00] LABS: ALBUMIN 3.2 gm/dL (3.5-5.0); ALK PHOS 76 IU/L (33-138); ALT 50 IU/L (12-78); ANION GAP 10.6 (10.0-19.0); AST 67 IU/L (10-40); BLOOD UREA NITROGEN 10 mg/dL (6-24); CALCIUM 8.5 mg/dL (8.5-10.5); CHLORIDE 108 mMol/L (96-110); CO2 25 mMol/L (22-32); CREATININE 0.6 mg/dL (0.5-1.1); ESTIMATED GFR (MDRD EQUATION) > 60; MAGNESIUM 2.1 mg/dL (1.8-2.6); POTASSIUM 3.6 mMol/L (3.7-5.1); SODIUM 140 mMol/L (135-145); TOTAL PROTEIN 6.2 g/dL (6.0-8.4)
[2017-03-13 04:01] LABS: TOTAL BILIRUBIN 0.8 mg/dL (0.0-1.5)
--- NOTE | 2017-03-13 12:53 | NUR ---
A - PT SCREENED D/T LOS. PT A/O X 1. K+ 3.6, GLU 111, BUN/GROUP HOME COUNSELOR 10/0.6, ALB 3.2. PT W/ 2+ BUE AND 1-2+ BLE EDEMA. PT IS NPO FOR CARDIOVERSION. HAS BEEN EATING REFUSED TO 100% ON [facility] SOFT DIET W/ AVERAGE OF 30% INTAKE. D - AT RISK W/ INADEQUATE ORAL INTAKE R/T DECREASED APPETITE AEB INTAKE RECORD. I - GOAL: 50% OR BETTER INTAKE BY DISMISSAL. M/E - 1) WILL OFFER ENSURE BID W/ BF AND DINNER AND F/U ON INTAKE IN 3-5 DAYS.
--- NOTE | 2017-03-13 14:12 | NUR ---
Introduced self and role of care management to pt. She is doing better today but still slow to respond at times. She states she lives in [place] by herself but her finace is ear by and helps her out. Her PCP is Dr Ruiz here in [place]. I did discuss some regaring dc plans and that skilled care or swingbed maybe an option for her. SHe really wants home and her finace will be there to help. I will give her POA a call and touch base.
--- NOTE | 2017-03-13 14:27 | NUR ---
I did call pt's POA her niece and introduced myself and role of care management. She states her son is the other POA but she is the local and he is from [facility]. I did tell her I discussed options of she is needing additional therapy of skilled and swingbed but her aunt really did not want to talk with me much or give me information. She stated she is a private person and was a very professional women that traveled and did consulting. She stated since about last 2 weeks pt has not been herself and more confused, hallucinating, etc. Prior to this pt was driving and out handling her own affairs. I did tell her that she would qualify and benefit from either a skilled or swingbed stay and did discuss options or home with [facility]. She states she mostly lives with her fiance but he would not be much help. She plans on coming down tomorrow or Monday and will talk with her then. WIll continue to follow.
--- NOTE | 2017-03-13 17:59 | NUR ---
Significant Event: Alert to self, confused, moderately cooperative with cares, restraints removed at 1515. Left for cardioversion at 1436, arrived back at 1513, SR with PACs, HRs in 40s-50s, SBPs 120s-130s, 1+ edema in lower extremeties. Remains above 90% on RA. NPO until supper time, patient needs fed. Inconinent of bladder, no BM this shift. Last pain med Ultram at 1700, takes meds crushed in apple sauce. Family updated. Follow up: Needs UA.
[2017-03-14 04:09] LABS: BASOPHIL % 0.3 %; EOSINOPHIL # 0.2 K/uL (0.0-0.5); EOSINOPHIL % 3.1 %; HEMATOCRIT 37.6 % (33.0-46.0); HEMOGLOBIN 12.6 g/dL (10.0-15.0); IMMATURE GRANULOCYTE % 0.4 %; LYMPHOCYTE # 1.6 K/uL (0.8-4.0); LYMPHOCYTE % 22.3 %; MCH 29.6 pg (27.0-34.0); MCHC 33.5 gm/dL (32.0-36.5); MCV 88.3 fl (83.0-98.0); MONOCYTE # 0.7 K/uL (0.0-1.0); MONOCYTE % 9.4 %; NEUTROPHIL # (ANC) 4.6 K/uL (1.8-7.8); NEUTROPHIL % 64.5 %; NRBC % 0 /100WBC (0-0.00); PLATELET COUNT 223 K/uL (150-450); RBC 4.26 M/uL (3.50-5.50); RDW-CV 15.3 % (11.9-14.6); WBC 7.1 K/uL (4.0-11.0)
[2017-03-14 04:16] LABS: PROTIME 28.8 SECONDS (9.8-11.4)
[2017-03-14 04:24] LABS: INR - (THERAPEUTIC) 2.72 (0.92-1.07)
[2017-03-14 04:30] LABS: ALBUMIN 3.1 gm/dL (3.5-5.0); ALK PHOS 76 IU/L (33-138); ALT 54 IU/L (12-78); ANION GAP 11.8 (10.0-19.0); AST 61 IU/L (10-40); BLOOD UREA NITROGEN 12 mg/dL (6-24); CALCIUM 8.4 mg/dL (8.5-10.5); CHLORIDE 106 mMol/L (96-110); CO2 25 mMol/L (22-32); CREATININE 0.6 mg/dL (0.5-1.1); ESTIMATED GFR (MDRD EQUATION) > 60; POTASSIUM 3.8 mMol/L (3.7-5.1); SODIUM 139 mMol/L (135-145); TOTAL BILIRUBIN 0.7 mg/dL (0.0-1.5); TOTAL PROTEIN 5.9 g/dL (6.0-8.4)
--- NOTE | 2017-03-14 04:45 | NUR ---
Significant Event: DURING 1ST HALF OF SHIFT THE PAIENT WAS A/0 X 4, COMPLETELY AWARE AND COOPERATIVE. AROUND MIDNIGHT SHE BECAME RESTLESS, BEGAN PULLING AT CORDS AND HAS BEEN ORIENTED ONLY TO PERSON SINCE THAT TIME. SHE HAS MADE NO ATTEMPTS TO GET OUT OF BED ON OWN. SHE REMAINS SINUS ANGELIQUE AND UP TO THE 60'S, ALL OTHER VSS ON RA, AFEBRILE. ONLY STATED PAIN ONCE AND SCHEDULED ULTRAM GIVEN DURING HS MEDS WITH NO OTHER COMPLAINTS OF PAIN. SHE DID START TO SLEEP AROUND 0300 AND HAS BEEN SLEEPING SINCE THAT TIME. DOES NEED MEALS FED TO HER, ON MECHANICAL SOFT DIET/OK FOR THIN LIQUIDS. SWALLOWS PILLS WHOLE EASILY. Follow up: PROBABLE D/C TO SWING BED IN THE NEXT DAY OR TWO.
[2017-03-14 08:51] LABS: BILIRUBIN URINE NEGATIVE (NEGATIVE); BLOOD URINE NEGATIVE /UL (NEGATIVE); COLOR URINE YELLOW (YELLOW); GLUCOSE URINE NEGATIVE (NEGATIVE); KETONE URINE NEGATIVE (NEGATIVE); LEUKOCYTES URINE 25 /UL (NEGATIVE); NITRITE URINE NEGATIVE (NEGATIVE); PROTEIN URINE NEGATIVE (NEGATIVE); TURBIDITY URINE CLEAR (CLEAR); UROBILINOGEN URINE NORMAL (NORMAL)
[2017-03-14 09:05] LABS: BACTERIA URINE FEW (NEGATIVE); MUCUS URINE 1+ (NEGATIVE); RBC URINE 0-2 #/HPF (NEGATIVE)
--- NOTE | 2017-03-14 15:50 | NUR ---
I did call her POA and let her know that pt md is DR Cruzito Hughes and saw him in November and her manager latin is Zachary. She plans on being up tomorrow and I did give her options if pt is willing for skilled or swingbed stay.
--- NOTE | 2017-03-14 16:52 | NUR ---
Significant Event:ASSUMED CARE OF PATIENT AT 1215. WAS IN RECLINER WHEN ASSUMED CARE. WALKED IN BATHROOM THEN IN [place] WITH PHYSICAL THERAPY 2 ASSIST. THEN BACK TO BED AFTER WALK. HAS BEEN ALERT AND ABLE TO STATE WHO SHE IS, WHERE SHE IS, HER AND YEAR BUT WILL REPEATIDLY ASK WHEN SHE IS GOING HOME. SHE BECOMES AGITATED AND RESTLESS WHEN EXPLAINED THAT SHE WILL BE STAYING IN HOSPITAL TONIGHT. NEEDS TO BE FED MEALS. BED ALARM AND TABS ALARM ON AT ALL TIMES DUE TO TRYING TO PUT LEGS OUT OF BED AND OFF OF FOOT REST OF RECLINER. Follow up:CONTINUE PLAN OF CARE
[2017-03-15 03:41] LABS: BASOPHIL # 0.1 K/uL (0.0-0.2); BASOPHIL % 0.7 %; EOSINOPHIL # 0.2 K/uL (0.0-0.5); EOSINOPHIL % 3.3 %; HEMATOCRIT 39.6 % (33.0-46.0); HEMOGLOBIN 13.2 g/dL (10.0-15.0); IMMATURE GRANULOCYTE % 0.3 %; LYMPHOCYTE # 1.8 K/uL (0.8-4.0); LYMPHOCYTE % 25.7 %; MCH 29.8 pg (27.0-34.0); MCHC 33.3 gm/dL (32.0-36.5); MCV 89.4 fl (83.0-98.0); MONOCYTE # 0.7 K/uL (0.0-1.0); MONOCYTE % 9.5 %; MPV 10.8 fl (9.4-12.4); NEUTROPHIL # (ANC) 4.2 K/uL (1.8-7.8); NEUTROPHIL % 60.5 %; NRBC % 0 /100WBC (0-0.00); PLATELET COUNT 225 K/uL (150-450); RBC 4.43 M/uL (3.50-5.50); RDW-CV 15.4 % (11.9-14.6)
[2017-03-15 04:02] LABS: INR - (THERAPEUTIC) 1.52 (0.92-1.07)
[2017-03-15 04:16] LABS: ALBUMIN 3.1 gm/dL (3.5-5.0); ALK PHOS 73 IU/L (33-138); ALT 53 IU/L (12-78); ANION GAP 11.8 (10.0-19.0); AST 53 IU/L (10-40); BLOOD UREA NITROGEN 14 mg/dL (6-24); CALCIUM 8.6 mg/dL (8.5-10.5); CHLORIDE 105 mMol/L (96-110); CO2 26 mMol/L (22-32); CREATININE 0.7 mg/dL (0.5-1.1); ESTIMATED GFR (MDRD EQUATION) > 60; MAGNESIUM 2.2 mg/dL (1.8-2.6); POTASSIUM 3.8 mMol/L (3.7-5.1); SODIUM 139 mMol/L (135-145); TOTAL BILIRUBIN 0.6 mg/dL (0.0-1.5); TOTAL PROTEIN 6.3 g/dL (6.0-8.4)
--- NOTE | 2017-03-15 07:13 | NUR ---
Significant Event: Patient alert to person, sometimes to place. HR 50s-60s. SBP 110s-150s. On RA. Incontinent this shift. No attempts to get out of bed alone this shift. Bed alarm on at all times. Complaints of pain to ankles. Scheduled Tramadol given with relief. Slept well this shift. Patient calm and cooperative with all cares. Follow up: Will continue to monitor per plan of care.
--- NOTE | 2017-03-15 12:52 | NUR ---
I did speak with Dr Bueno and he states ready Monday to swingbed or wherever. HE states he talked with pt but gets upset and sad and not totally understanding. I am waiting for Edwina to tell me where to look but I did call up and spoke with Josefina at the [place] [facility] and will fax information.
--- NOTE | 2017-03-15 15:15 | NUR ---
I did talk with Edwina before talking with her aunt and she spoke with her and pt understands she needs to go somewhere for a short time to get back on her feet before going home. Edwina states she and Karan the son speak all the time and they think maybe the best would be [facility]. I also mentioned the swingbed in [place] as well and they are aware and know the pt. We then we and spoke with the pt and discussed both options and she really does not care but thinking more towards [facility] as first and [facility] as second and for a provider if needed Dr Ingram. Pt would like the private room and will pay extra at [facility] as well. I then called Kerrie back at [facility] and will fax referral and they will be down tomorrow between 2:30-3 to see pt. I also told Edwina she can stop by and visit as well and look at the room. I told Edwina pending if they can accept Kerrie will need to make sure about transportation and if they can not to see if Edwina is able. I did update pt and Edwina and she will update pt's son. WIll continue to follow.
--- NOTE | 2017-03-15 17:09 | NUR ---
Significant Event: VSS AND RA. DENIES PAIN. ORIENTED TO SELF ONLY, OCCASIONALLY PLACE. PT/OT/ST FOLLOWING. AMBULATED WITH GB, WALKER, AND 2 A INTO THE SHOWER THIS AM, BUT WAS VERY WEAK T/O REST OF THE DAY REQUIRING LIFT TO GET FROM RECLINER TO BED. REPOSITIONED Q2H AND ALOE TO BUTTOCKS. INC SEVERAL URINE. TO BE NPO P MN FOR STRESS TEST IN THE AM. Follow up: CONTINUE PLAN OF CARE; CM [facility]
[2017-03-16 04:00] LABS: BASOPHIL % 0.6 %; EOSINOPHIL # 0.3 K/uL (0.0-0.5); EOSINOPHIL % 4.1 %; HEMATOCRIT 38.5 % (33.0-46.0); IMMATURE GRANULOCYTE % 0.2 %; LYMPHOCYTE # 1.5 K/uL (0.8-4.0); LYMPHOCYTE % 23.3 %; MCH 30.2 pg (27.0-34.0); MCHC 33.8 gm/dL (32.0-36.5); MCV 89.3 fl (83.0-98.0); MONOCYTE # 0.6 K/uL (0.0-1.0); MONOCYTE % 10.1 %; MPV 11.1 fl (9.4-12.4); NEUTROPHIL # (ANC) 3.9 K/uL (1.8-7.8); NEUTROPHIL % 61.7 %; NRBC % 0 /100WBC (0-0.00); PLATELET COUNT 237 K/uL (150-450); RBC 4.31 M/uL (3.50-5.50); RDW-CV 15.4 % (11.9-14.6); WBC 6.3 K/uL (4.0-11.0)
[2017-03-16 04:11] LABS: INR - (THERAPEUTIC) 1.32 (0.92-1.07); PROTIME 13.9 SECONDS (9.8-11.4)
[2017-03-16 04:19] LABS: ALBUMIN 3.1 gm/dL (3.5-5.0); ALK PHOS 68 IU/L (33-138); ALT 46 IU/L (12-78); ANION GAP 11.8 (10.0-19.0); AST 37 IU/L (10-40); BLOOD UREA NITROGEN 16 mg/dL (6-24); CALCIUM 8.7 mg/dL (8.5-10.5); CHLORIDE 103 mMol/L (96-110); CO2 28 mMol/L (22-32); CREATININE 0.7 mg/dL (0.5-1.1); ESTIMATED GFR (MDRD EQUATION) > 60; MAGNESIUM 2.2 mg/dL (1.8-2.6); POTASSIUM 3.8 mMol/L (3.7-5.1); SODIUM 139 mMol/L (135-145); TOTAL BILIRUBIN 0.5 mg/dL (0.0-1.5); TOTAL PROTEIN 6.1 g/dL (6.0-8.4)
--- NOTE | 2017-03-16 04:54 | NUR ---
Significant Event: PATIENT IS ORIENTED TO SELF ONLY. CLEAR SPEECH. ANSWERS QUESTIONS APPROPRIATELY. BED ALARM AT ALL TIMES. INCONTINENT OF URINE. PT/OT/ST. STRESS TEST TODAY. MAURICIO TOOK CELL PHONE. TAKES COUMADIN. LIVES IN [place] BY HERSELF. Follow up:SWING BED IN [place] VS. [facility]..
--- NOTE | 2017-03-16 11:56 | NUR ---
I did update Josefina at [facility] that they would use Dr Ingram but family are wanting [facility] as first choice unless they are unable to accept then will got with the swingbed. [facility] to assess today.
--- NOTE | 2017-03-16 12:37 | NUR ---
A - NUTRITION F/U. A/O X 1. ALB 3.1, OTHER LABS WNL. PT W/ 2+ BUE AND 1+ BLE EDEMA...DIURESING. DIET: REGULAR W/ ENSURE BID. INTAKE EITHER 0-25% OR 75-100%. POSSILBE DISCHARGE TOMORROW. D - AT RISK W/ INADEQUATE ORAL INTAKE AT TIMES R/T DECREASED APPETITE AEB INTAKE RECORD. I - GOAL: 50% OR BETTER INTAKE. M/E - WILL CONT TO MONITOR INTAKE. F/U IN 2-4 DAYS IF STILL HERE.
--- NOTE | 2017-03-16 15:15 | NUR ---
Social visit with Kerrie and the DON from [facility]. It sounds like they can accept and Kerrie did speak with son Karan and he is ok with this as well and discussed financial and other information on the phone. She did call Edwina as well and updated her and she let Edwina know I will be in contact tomorrow when we have orders and more of a time. WIll continue to follow and assist as needed.
--- NOTE | 2017-03-16 16:05 | NUR ---
SIGNIFICANT EVENT: Patient oriented to self, sometimes to place. HR 50s-60s. SBP 116-150. On RA. Up 2A pivot with walker-very weak, shuffles her feet. PT/OT got her up to bathroom. Attempted to get out of bed twice this shift. Alarms on at all times. Had stress test this AM-was negative. Takes coumadin. Tramadol for pain-no complaints of pain this shift. Very lethargic today. Had visual hallucinations early this AM. Got tearful at times. FOLLOW UP: Going to [facility] tomorrow.
[2017-03-17 05:16] LABS: BASOPHIL % 0.6 %; EOSINOPHIL # 0.2 K/uL (0.0-0.5); EOSINOPHIL % 3.5 %; HEMATOCRIT 38.9 % (33.0-46.0); HEMOGLOBIN 12.7 g/dL (10.0-15.0); IMMATURE GRANULOCYTE % 0.3 %; LYMPHOCYTE # 1.5 K/uL (0.8-4.0); LYMPHOCYTE % 22.3 %; MCH 29.4 pg (27.0-34.0); MCHC 32.6 gm/dL (32.0-36.5); MONOCYTE # 0.8 K/uL (0.0-1.0); MONOCYTE % 12.7 %; MPV 10.8 fl (9.4-12.4); NEUTROPHIL % 60.6 %; NRBC % 0 /100WBC (0-0.00); PLATELET COUNT 239 K/uL (150-450); RBC 4.32 M/uL (3.50-5.50); RDW-CV 15.4 % (11.9-14.6); WBC 6.6 K/uL (4.0-11.0)
[2017-03-17 05:29] LABS: INR - (THERAPEUTIC) 1.27 (0.92-1.07); PROTIME 13.4 SECONDS (9.8-11.4)
--- NOTE | 2017-03-17 05:34 | NUR ---
Significant Event: Patient has been alert and disoriented to time/place. Has been pleasant and cooperative with cares. Vital signs are stable, HR's do jose l down to 30's while asleep. On room air. Denies any pain. Incontinent of urine at times. Repositioned q.2hr. Follow up: Dismiss to [facility] today.
[2017-03-17 05:38] LABS: ALBUMIN 2.9 gm/dL (3.5-5.0); ALK PHOS 64 IU/L (33-138); ALT 40 IU/L (12-78); AST 30 IU/L (10-40); BLOOD UREA NITROGEN 15 mg/dL (6-24); CALCIUM 8.9 mg/dL (8.5-10.5); CHLORIDE 104 mMol/L (96-110); CO2 26 mMol/L (22-32); CREATININE 0.7 mg/dL (0.5-1.1); ESTIMATED GFR (MDRD EQUATION) > 60; MAGNESIUM 2.3 mg/dL (1.8-2.6); SODIUM 137 mMol/L (135-145); TOTAL BILIRUBIN 0.6 mg/dL (0.0-1.5)
--- NOTE | 2017-03-17 13:39 | NUR ---
PT DISMISSED TO [facility] IN [place] FOR FURTHER REHAB AND CARE. AT TIME OF DC PT IS ALERT, SLIGHTLY DISORIENTED, THINKS SHES IN [place]. SHE IS UNSTEADY ON HER FEET WHEN UP, PT WALKED HER THIS AM WITH 2 ASSIST AND A WALKER AND SHE DID OK,LUNGS ARE CLEAR ABDOMEN IS SOFT AND NONTENDER WITH PRESENT BOWEL SOUNDS, PULSES ARE STRONG SHE HAS NO EDEMA. DISMISSAL PACKET SENT WITH CALL WORKER AND WILL CALL REPORT TO [facility] FOR NURSE TO NURSE. DID TALK TO SON THIS AM AND HE IS IN AGEEEMENT FOR HER TO GO. MEDICATIONS.PRESCRIPTIONS, AND FOLLOWUP CARE AND INSTRUCTIONS IN PACKET FOR [facility].
--- NOTE | 2017-03-17 14:38 | NUR ---
I spoke with Kerrie at 1000 am and explained I just got word that pt can go to the [facility]. I called Edwina her POA and she agree's to this and for [facility]. She asked me to call Karan the son. I did call Karan and explained she is ready to go to [facility] and he agree's and spoke with them yesterday. I did ask about [facility] sewer and she will continue to see her Dr Delia Woodall. I then put Marybel RN on the phone with son because he wanted and update. Marybel gave update and no other questions or concerns. I did update pt and she as well agree's to [facility]. WIll continue to follow and assist as needed.
== END 2017-03-17 14:03 | DRG 308 ==
LOC: GPCU 11:15 → EDSTATUS 12:00 → GPCU 03-17 14:03
PROVIDERS: Hospitalist; Internal Medicine Cardiovascular Disease; ADMIT Internal Medicine
PROC: 5A2204Z Restoration of Cardiac Rhythm, Single (ICD-10-PCS; principal; 2017-03-13)
DX: I48.1 Persistent atrial fibrillation (principal); G93.40 Encephalopathy, unspecified; E87.0 Hyperosmolality and hypernatremia; I11.0 Hypertensive heart disease with heart failure; I50.32 Chronic diastolic (congestive) heart failure; N39.0 Urinary tract infection, site not specified; G25.0 Essential tremor; E78.5 Hyperlipidemia, unspecified; B96.89 Other specified bacterial agents as the cause of diseases classified elsewhere; R79.1 Abnormal coagulation profile; F09 Unspecified mental disorder due to known physiological condition; G25.81 Restless legs syndrome; G47.33 Obstructive sleep apnea (adult) (pediatric); K21.9 Gastro-esophageal reflux disease without esophagitis; Z86.73 Personal history of transient ischemic attack (TIA), and cerebral infarction without residual deficits; Z79.01 Long term (current) use of anticoagulants; I25.10 Atherosclerotic heart disease of native coronary artery without angina pectoris; Z95.5 Presence of coronary angioplasty implant and graft; Z86.12 Personal history of poliomyelitis; E87.6 Hypokalemia; Z78.1 Physical restraint status; R00.1 Bradycardia, unspecified
CPT/HCPCS: A9270; A9500; C9113; J0295; J1630; J1650; J2785; J7030; J7040; J7050; J7060